=== PATIENT | male | born 1960 | race Caucasian/White ===

== ENCOUNTER 2017-07-21 12:05 | Observation (INO) ==
[2017-07-21 13:24] LABS: Basophils # 0.1 10*3/uL (0.0-0.2); Basophils % 0.7 % (0.0-0.8); Eosinophils # 0.2 10*3/uL (0.0-0.87); Eosinophils % 1.5 % (0.00-10.9); Hematocrit 47.6 VOL% (42.0-52.0); Hemoglobin 16.9 GM/DL (14.0-18.0); Immature Granulocytes % 0.3 %; Immature Granulocytes Absolute 0.03 #; Lymphocytes # 2.1 10*3/uL (1.4-4.0); Lymphocytes % 20.8 % (21.2-54.2); Mean Corpuscular HGB Conc 35.5 GM/DL (32-36); Mean Corpuscular Hemoglobin 33 PG (27-34); Mean Corpuscular Volume 91.5 FL (87-102); Mean Platelet Volume 10.8 FL (9.6-12.0); Monocytes # 0.5 10*3/uL (0.11-0.8); Monocytes % 4.8 % (1.7-12.7); Neutrophils # 7.4 10*3/uL (1.4-7.4); Neutrophils % 71.9 % (38.7-73.9); Platelet Count 194 T/CUMM (130-400); Red Cell Distribution Width 12.7 % (9.3-17.3); White Blood Count 10.2 T/CUMM (4-12)
[2017-07-21] MEDS ORDERED: ENOXAPARIN 100 MG/ML SYRINGE SUBCUT STA (13:40)
[2017-07-21] MEDS ORDERED: ASPIRIN 325 MG TABLET PO STA (13:40)
[2017-07-21] MEDS ORDERED: NITROGLYCERIN 2% OINT 1 INCH/GM PACK TOP STA (13:40)
[2017-07-21] MEDS ORDERED: METOPROLOL TARTRATE 5 MG/5 ML VIAL IV STA ×2 (13:40→15:36)
[2017-07-21 14:02] LABS: Alkaline Phosphatase 102 U/L (45-117); Aspartate Amino Transferase 18 U/L (0-37); Calcium 9.5 MG/DL (8.5-10.1)
[2017-07-21 14:03] LABS: Alanine Aminotransferase 41 U/L (16-61); Albumin 3.8 G/DL (3.4-5.0); Blood Urea Nitrogen 16 MG/DL (7-18); Glucose 139 MG/DL (74-106); Osmolality,Calculated 281.4 MOS/KG (273-304); Potassium 3.5 MMOL/L (3.5-5.1); Sodium 140 MMOL/L (136-145); Total Protein 7.3 G/DL (6.4-8.3); Troponin I Only < 0.015 NG/ML (0.00-0.045)
[2017-07-21] MEDS ORDERED: DEXTROSE 50% 25 GM/50 ML VIAL IV PRN (15:00)
[2017-07-21] MEDS ORDERED: guaiFENesin/DM ER 600-30 MG TABLET PO PRN (15:00)
[2017-07-21] MEDS ORDERED: MAGNESIUM SULF RIDER 4 GM in PREMIX 1 EACH IV PRN (15:00)
[2017-07-21] MEDS ORDERED: POTASSIUM CHLORIDE RIDER 10 MEQ in PREMIX 1 EACH IV PRN (15:00)
[2017-07-21] MEDS ORDERED: NICOTINE 21 MG/24 HR PATCH TRANSDERM PRN (15:00)
[2017-07-21] MEDS ORDERED: ACETAMINOPHEN 325 MG TABLET PO PRN (15:00)
[2017-07-21] MEDS ORDERED: MAGNESIUM SULF RIDER 2 GM in PREMIX 1 EACH IV PRN (15:00)
[2017-07-21] MEDS ORDERED: DOCUSATE SODIUM 100 MG CAPSULE PO PRN (15:00)
[2017-07-21] MEDS ORDERED: ONDANSETRON 4 MG/2 ML VIAL IV PRN (15:00)
[2017-07-21] MEDS ORDERED: GLUCAGON 1 MG VIAL IM PRN (15:00)
[2017-07-21] MEDS ORDERED: ZALEPLON 5 MG CAPSULE PO PRN (15:00)
[2017-07-21 16:29] LABS: Troponin I Only < 0.015 NG/ML (0.00-0.045)
[2017-07-21] MEDS ORDERED: METOPROLOL TARTRATE 50 MG TABLET PO ONE (16:35)
[2017-07-21] MEDS: INSULIN REGULAR 100 UNIT/ML SUBCUT SCH ×2 (17:35→20:15)
[2017-07-21 19:44] LABS: Apearance,Urine CLEAR (Clear); Bacteria,Urine Occasional /HPF (Few); Bilirubin,Urine Negative (Negative); Blood, Urine Negative (Negative); Glucose,Urine (UA) Negative (Negative); Ketones,Urine Negative (Negative); Mucus,Urine Few /LPF (Occasional); Nitrite,Urine Negative (Negative); Protein,Urine 30 MG/DL; RBC,Urine 1 /HPF (0-4); Urine Color Yellow (Yellow); Urine Specific Gravity 1.025 (1.001-1.035); WBC,Urine 1 /HPF (0-6)
[2017-07-21] MEDS: METOPROLOL TARTRATE 50 MG TABLET PO SCH (20:16)
[2017-07-21] MEDS: ACETAMINOPHEN 325 MG TABLET PO SCH (20:16)
[2017-07-21] MEDS: GABAPENTIN 300 MG CAPSULE PO SCH (20:16)
[2017-07-21 22:38] LABS: Troponin I Only < 0.015 NG/ML (0.00-0.045)
[2017-07-22] MEDS: ENOXAPARIN 80 MG/0.8 ML SYRINGE SUBCUT SCH ×2 (01:39→14:54)
[2017-07-22 05:00] LABS: Basophils # 0.1 10*3/uL (0.0-0.2); Basophils % 0.6 % (0.0-0.8); Eosinophils # 0.2 10*3/uL (0.0-0.87); Eosinophils % 2.5 % (0.00-10.9); Hematocrit 42.3 VOL% (42.0-52.0); Hemoglobin 15.3 GM/DL (14.0-18.0); Immature Granulocytes % 0.4 %; Immature Granulocytes Absolute 0.03 #; Lymphocytes # 2.5 10*3/uL (1.4-4.0); Lymphocytes % 29.2 % (21.2-54.2); Mean Corpuscular HGB Conc 36.2 GM/DL (32-36); Mean Corpuscular Hemoglobin 33 PG (27-34); Mean Corpuscular Volume 89.8 FL (87-102); Mean Platelet Volume 11.6 FL (9.6-12.0); Monocytes # 0.5 10*3/uL (0.11-0.8); Monocytes % 6.4 % (1.7-12.7); Neutrophils # 5.2 10*3/uL (1.4-7.4); Neutrophils % 60.9 % (38.7-73.9); Platelet Count 173 T/CUMM (130-400); Red Blood Count 4.71 MC/CUMM (3.8-5.5); Red Cell Distribution Width 12.5 % (9.3-17.3); White Blood Count 8.5 T/CUMM (4-12)
[2017-07-22 05:37] LABS: Calcium 8.9 MG/DL (8.5-10.1); Osmolality,Calculated 285.4 MOS/KG (273-304); Potassium 3.5 MMOL/L (3.5-5.1); Risk Ratio 6.32
[2017-07-22 05:38] LABS: Troponin I Only < 0.015 NG/ML (0.00-0.045)
[2017-07-22] MEDS ORDERED: GLIMEPIRIDE 2 MG TABLET PO SCH (08:00)
[2017-07-22] MEDS: INSULIN REGULAR 100 UNIT/ML SUBCUT SCH ×3 (08:59→16:11)
[2017-07-22] MEDS ORDERED: ASPIRIN 325 MG TABLET PO SCH (09:00)
[2017-07-22] MEDS ORDERED: PANTOPRAZOLE 40 MG TABLET PO SCH (09:00)
[2017-07-22] MEDS: ACETAMINOPHEN 325 MG TABLET PO SCH (09:01)
[2017-07-22] MEDS: METOPROLOL TARTRATE 50 MG TABLET PO SCH (09:01)
[2017-07-22] MEDS: GABAPENTIN 300 MG CAPSULE PO SCH (09:01)
[2017-07-22] MEDS ORDERED: POTASSIUM CHLORIDE RIDER 10 MEQ in PREMIX 1 EACH IV PRN (10:15)
[2017-07-22] MEDS ORDERED: MAGNESIUM SULF RIDER 2 GM in PREMIX 1 EACH IV PRN (10:15)
[2017-07-22] MEDS ORDERED: DEXTROSE 5% NACL 0.45% 1,000 ML IV SCH (10:30)
[2017-07-22 11:11] LABS: INR 0.9; PT Patient Result 9.9 SECS
[2017-07-22] MEDS ORDERED: DIAZEPAM 5 MG TABLET ONE (12:38)
[2017-07-22] MEDS ORDERED: diphenhydrAMINE CAP 50 MG CAPSULE ONE (12:38)
[2017-07-22] MEDS ORDERED: HEPARIN/NACL 0.9% 2 UNITS/ML 1,000 ML IV ONE (12:42)
[2017-07-22] MEDS ORDERED: MIDAZOLAM 2 MG/2 ML VIAL ONE (12:59)
[2017-07-22] MEDS ORDERED: NITROGLYCERIN DRIP 50 MG/250 ML BOTTLE IV ONE (13:00)
[2017-07-22] MEDS ORDERED: fentaNYL 100 MCG/2 ML VIAL ONE (13:00)
[2017-07-22] MEDS ORDERED: diphenhydrAMINE CAP 25 MG CAPSULE PO ONE (13:00)
[2017-07-22] MEDS ORDERED: DIAZEPAM 5 MG TABLET PO ONE (13:00)
[2017-07-22] MEDS ORDERED: VERAPAMIL 5 MG/2 ML VIAL ONE (13:00)
[2017-07-22] MEDS ORDERED: ENOXAPARIN 60 MG/0.6 ML SYRINGE ONE (13:20)
[2017-07-22 16:54] VITALS: BP 148/78
[2017-07-22] MEDS ORDERED: PNEUMOCOCCAL VACCINE (13 VALENT) 0.5 ML SYRINGE IM ONE (17:20)
== END 2017-07-22 18:40 | disposition home or self-care (01) ==
LOC: N.EDINP 12:05 → N.ED 12:05 → N.EDINP 17:00 → N.TELEN 17:06
PROVIDERS: ADMIT Internal Medicine Cardiovascular Disease; ATTEND Internal Medicine Cardiovascular Disease
PROC: CLCCHCL (ICD-10-PCS; 2017-07-22 15:15)